=== PATIENT | male | born 2005 | race Caucasian/White ===

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

== ENCOUNTER 2025-02-15 11:37 | Emergency (ER) | payer OTHER ==
[~2025-02-15] VITALS: Ht 167.6 cm; Wt 61.0 kg
[2025-02-15 11:40] VITALS: O2SAT 98
[2025-02-15 11:46] VITALS: TEMP 36.9; O2SAT 99
[2025-02-15 13:38] VITALS: BP 125/58; PULSE 73; RESP 16
[2025-02-15] MEDS: KETOROLAC 30MG/ML VIAL IM ONE (13:38)
[2025-02-15] MEDS ORDERED: KETO10TA2 MT (13:52)
== END 2025-02-15 14:15 | disposition home or self-care (01) ==
LOC: ER 11:37
DX: M25.571 Pain in right ankle and joints of right foot (principal)
CPT/HCPCS: 73610; 99283; J1885; Z7610